=== PATIENT | male | born 1965 | race Hispanic/Latino ===

== ENCOUNTER 2016-10-29 00:17 | Emergency (ER) | payer SELFPAY ==
[2016-10-29] MEDS ORDERED: NORCO 5/325 PO ONE (06:22)
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
--- NOTE | 2016-10-29 06:47 | XRay Report ---
FINAL REPORT EXAM: XR SHOULDER 2+V LT HISTORY: left shoulder pain COMPARISONS: None. FINDINGS: 2 views left shoulder Left glenohumeral joint appears intact. Acromioclavicular and coracoclavicular intervals are within normal limits. No displaced fracture. Incomplete evaluation of the adjacent left lung is unremarkable. IMPRESSION: Unremarkable left shoulder radiographs.
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
[2016-10-29 07:41] VITALS: BP 102/58
== END 2016-10-29 07:43 | disposition home or self-care (01) ==
LOC: ED 00:17
DX: M25.512 Pain in left shoulder (principal); R51 Headache; M54.2 Cervicalgia; F17.200 Nicotine dependence, unspecified, uncomplicated; V89.2XXA Person injured in unspecified motor-vehicle accident, traffic, initial encounter; Y93.9 Activity, unspecified; Y99.9 Unspecified external cause status; Y92.410 Unspecified street and highway as the place of occurrence of the external cause
CPT/HCPCS: 70450; 72125

== ENCOUNTER 2020-12-12 03:21 | Emergency (ER) | payer SELFPAY ==
[2020-12-12] MEDS ORDERED: ZIPRASIDONE MESYLATE 20 MG VIAL IM ONE (04:24)
--- NOTE | 2020-12-12 04:42 | Emergency Department Report ---
ED Psych HPI - General Chief Complaint: Psych Stated Complaint: DEMONS TALK TO HIM Time Seen by Provider: 12/12/20 04:35 Source: patient, EMS Mode of arrival: Ambulatory Limitations: Altered Mental Status - History of Present Illness Initial Comments: Patient is a 55-year-old male who presents emergency room with complaints of hearing voices. Patient states he is demons are talking to him. Patient states there constant. Patient states they're worsening. Patient states been going on for 2 weeks or 2 months or maybe even 3 months. Patient denies suicidal and homicidal ideation. Patient states that he is very emotional because he can't get the voices to stop talking to him. Patient states the voices are getting louder. Patient started to yell at him. Patient denies recent travel. Patient denies recent international travel. Patient denies exposure to the novel coronavirus. Patient denies sick contacts. Patient denies fever and chills. Patient denies cough. Patient denies diarrhea. Patient denies coming in contact with anybody with symptoms of the novel coronavirus. MD Complaint: altered mental status Associated Psychiatric Symptoms: racing thoughts History of same: Yes Quality: constant Improves With: none Worsens With: none Context: significant life stressor Associated Symptoms: denies: confusion, headache, nausea, vomiting, syncope, insomnia - Related Data Allergies Allergy/AdvReac Type Severity Reaction Status Date / Time No Known Allergies Allergy Verified 12/13/20 10:20 ED Review of Systems ROS: Stated complaint: DEMARCELIA TALK TO HIM Other details as noted in HPI Constitutional: denies: chills, fever Eyes: denies: eye pain, eye discharge, vision change ENT: denies: ear pain, throat pain Respiratory: denies: cough, shortness of breath, wheezing Cardiovascular: denies: chest pain, palpitations Endocrine: no symptoms reported Gastrointestinal: denies: abdominal pain, nausea, diarrhea Genitourinary: denies: urgency, dysuria Musculoskeletal: denies: back pain, joint swelling, arthralgia Skin: denies: rash, lesions Neurological: denies: headache, weakness, paresthesias Psychiatric: auditory hallucinations. denies: anxiety, depression, visual hallucinations, homicidal thoughts, suicidal thoughts Hematological/Lymphatic: denies: easy bleeding, easy bruising ED Past Medical Hx - Past Medical History Previous Medical History?: No - Surgical History Additional Surgical History: back - Family History Family history: no significant - Social History Smoking Status: Current Every Day Smoker Substance Use Type: Alcohol ED Physical Exam - General Limitations: No Limitations General appearance: alert, in no apparent distress - Head Head exam: Present: atraumatic, normocephalic - Eye Eye exam: Present: normal appearance - ENT ENT exam: Present: mucous membranes moist - Neck Neck exam: Present: normal inspection - Respiratory Respiratory exam: Present: normal lung sounds bilaterally. Absent: respiratory distress - Cardiovascular Cardiovascular Exam: Present: regular rate, normal rhythm. Absent: systolic murmur, diastolic murmur, rubs, gallop - GI/Abdominal GI/Abdominal exam: Present: soft, normal bowel sounds - Rectal Rectal exam: Present: deferred - Extremities Exam Extremities exam: Present: normal inspection - Back Exam Back exam: Present: normal inspection - Neurological Exam Neurological exam: Present: alert, oriented X3 - Expanded Psychiatric Exam Expanded Focused psych exam: Present: pressured speech, internal stimuli, psychomotor agitation, paranoid, restlessness, flight of ideas - Skin Skin exam: Present: warm, dry, intact, normal color. Absent: rash ED Course Vital Signs 12/12/20 12/12/20 12/12/20 03:21 05:17 09:22 Temperature 98.2 F 97.8 F Pulse Rate 102 H 99 H Respiratory 16 18 18 Rate Blood Pressure 121/77 95/61 [Left] O2 Sat by Pulse 98 98 97 Oximetry 12/12/20 12/13/20 20:53 10:20 Temperature 98.5 F Pulse Rate 90 Respiratory 18 18 Rate Blood Pressure 117/69 [Left] O2 Sat by Pulse 96 97 Oximetry - Reevaluation(s) Reevaluation #1: Initial evaluation done. Patient will given Geodon 40 mg for his acute psychosis. Patient is emotionally labile. Patient placed on a ER hold. Elzbieta ent will have labs done. 12/12/20 04:42 Reevaluation #2: Patient is medically cleared. Patient remained in the ER as an ER hold until the patient is cleared by our psychiatry team. Patient's final disposition will come from our psychiatry team. 12/12/20 05:33 ED Medical Decision Making - Lab Data Result diagrams: 12/12/20 04:28 12/12/20 04:28 - Medical Decision Making Patient is a 55-year-old male who presents emergency room with hallucinations and stating that demons are trying to take over him. Patient states he is hearing voices and people keep talking to him. Patient states he cannot get control of the voices. Patient has been going on for some time. Patient is unsure exactly how long and mentioned multiple timeframes. Patient had labs done which were essentially unremarkable. Patient is medically cleared. Patient will remain in the ER as an ER hold until the patient is cleared by our psychiatry team. Patient's will come from our psychiatry team. - Differential Diagnosis Hallucinations, acute psychosis, agitation, restlessness Critical care attestation.: If time is entered above; I have spent that time in minutes in the direct care of this critically ill patient, excluding procedure time. ED Disposition Clinical Impression: Acute psychosis, Auditory hallucinations, Restlessness Disposition: [address] [place] [address] Is pt being admited?: No Does the pt Need Aspirin: No Condition: Stable Referrals: ARTHUR GARCIA MD [Primary Care Provider] - 2-3 Days Time of Disposition: 05:33
[2020-12-12 04:52] LABS: Basophils # (Auto) 0.1 K/mm3 (0.0-0.1); Eosinophils # (Auto) 0.3 K/mm3 (0.0-0.4); Eosinophils % (Auto) 4.7 % (0.0-4.3); Hematocrit 42.5 % (35.5-45.6); Hemoglobin 13.8 gm/dl (11.8-15.2); Lymphocytes # (Auto) 1.6 K/mm3 (1.2-5.4); Lymphocytes % (Auto) 25.8 % (13.4-35.0); Mean Corpuscular HGB Conc 32 % (32-34); Mean Corpuscular Volume 81 fl (84-94); Monocytes # (Auto) 0.7 K/mm3 (0.0-0.8); Monocytes % (Auto) 11.8 % (0.0-7.3); Platelet Count 236 K/mm3 (140-440); Red Blood Count 5.25 M/mm3 (3.65-5.03); Red Cell Distribution Width 15.3 % (13.2-15.2)
[2020-12-12 05:15] LABS: BUN/Creatinine Ratio 24; Blood Urea Nitrogen 26 mg/dL (9-20); Calcium 9.1 mg/dL (8.4-10.2); Hemolysis Index 2
[2020-12-12 07:17] LABS: Benzodiazepines Screen,Urine Negative; Cocaine Screen,Urine Negative; Methadone Screen,Urine Negative; Opiate Screen,Urine Negative
[2020-12-12 07:22] LABS: Bilirubin,Urine NEG (Negative); Blood,Urine NEG (Negative); Color,Urine Yellow (Yellow); Mucus,Urine FEW /HPF; Urobilinogen,Urine < 2.0 mg/dL (<2.0)
[2020-12-12 07:39] LABS: Amphetamine Screen,Urine Positive; Cannabinoid Screen,Urine Positive
--- NOTE | 2020-12-12 09:36 | Consultation ---
History of Present Illness - Reason for Consult Consult date: 12/12/20 Reason for consult: psychosis - History of Present Psychiatric Illness Per ER Note: Patient is a 55-year-old male who presents emergency room with complaints of hearing voices. Patient states he is demons are talking to him. Patient states there constant. Patient states they're worsening. Patient states been going on for 2 weeks or 2 months or maybe even 3 months. Patient denies suicidal and homicidal ideation. Patient states that he is very emotional because he can't get the voices to stop talking to him. Patient states the voices are getting louder. Patient started to yell at him. Andrew Ryan is a 55y/o male patient who was seen today. The patient is acutely psychotic. He is slow to respond, and distracted. He is responding to internal stimuli. He is irritable, uncooperative. He says "I just want to be left alone." He then asks if I could come back later. The patient says "I'm hearing voices I can't talk right now. I need help." He then states "this is the way you want it. This is what you want?" The patient is positive for amphetamines and THC PAST PSYCHIATRIC HISTORY: Unable to obtain PAST MEDICAL HISTORY: None reported or document Family Psychiatric History: None reported or documented SOCIAL HISTORY Unable to obtain REVIEW OF SYSTEMS Unable to obtain MENTAL STATUS EXAMINATION General Appearance and Behavior: Age appropriate, good hygiene, wearing appropriate clothes. Cooperation: uncooperative, guarded Psychomotor Behavior: Psychomotor normal Mood: not good Affect and affective range: restricted Thought Process: illogical Thought Content: hallucinations Speech: Normal volume, Regular rate and rhythm, Suicidal Ideation: Homicidal Ideation: Hallucinations: Auditory Delusions: Yes Impulse Control: Limited Insight and Judgment: Poor Memory: Poor Attention: Distracted Orientation: alert and oriented Assessment and Plan (1) Acute Psychosis (2) Amphetamine Use Disorder Treatment Plan 1013 Risperidone 0.5mg po BID Vistaril 50mg po BID Trazodone 50mg po qhs Sitter: Per primary Medical: per primary Disposition: Recommend acute psychiatric inpatient treatment. Will follow. Thanks. Case staffed with Dr. Maldonado Medications and Allergies Allergies Allergy/AdvReac Type Severity Reaction Status Date / Time No Known Allergies Allergy Unverified 10/29/16 00:40 Home Medications Medication Instructions Recorded Confirmed Last Taken Type Cyclobenzaprine [Flexeril] 10 mg PO TID PRN #12 tablet 10/29/16 Unknown Rx Naproxen [Naprosyn TAB] 500 mg PO BID PRN #25 tablet 10/29/16 Unknown Rx Mental Status Exam - Vital signs Last Vital Signs Temp 97.8 F 12/12/20 09:22 Pulse 99 H 12/12/20 09:22 Resp 18 12/12/20 09:22 BP 95/61 12/12/20 09:22 Pulse Ox 97 12/12/20 09:22 Results Result Diagrams: 12/12/20 04:28 12/12/20 04:28 Abnormal lab results 12/12/20 12/12/20 12/12/20 Range/Units 04:28 04:28 04:28 RBC (3.65-5.03) M/mm3 MCV (84-94) fl MCH (28-32) pg RDW (13.2-15.2) % Churchill % (Auto) (0.0-7.3) % Eos % (Auto) (0.0-4.3) % BUN 26 H (9-20) mg/dL Glucose 106 H (75-100) mg/dL Salicylates < 0.3 L (2.8-20.0) mg/dL Acetaminophen 7.0 L (10.0-30.0) ug/mL 12/12/20 Range/Units 04:28 RBC 5.25 H (3.65-5.03) M/mm3 MCV 81 L (84-94) fl MCH 26 L (28-32) pg RDW 15.3 H (13.2-15.2) % [place] % (Auto) 11.8 H (0.0-7.3) % Eos % (Auto) 4.7 H (0.0-4.3) % BUN (9-20) mg/dL Glucose (75-100) mg/dL Salicylates (2.8-20.0) mg/dL Acetaminophen (10.0-30.0) ug/mL All other labs normal.
[2020-12-12] MEDS: risperiDONE 0.25 MG TAB PO SCH ×2 (10:06→22:32)
--- NOTE | 2020-12-12 16:23 | Event Note ---
Date: 12/12/20 S: Patient has no complaints. No overnight events per nursing. O: Patient, cooperative. A: Acute psychosis, amphetamine use disorder P: Continue 1013, currently awaiting psychiatric placement
[2020-12-12] MEDS ORDERED: LORazepam 2 MG/ML VIAL IM ONE (18:29)
[2020-12-12 20:54] VITALS: BP 117/69
[2020-12-12] MEDS ORDERED: traZODone 50 MG TAB PO SCH (22:00)
[2020-12-13] MEDS: risperiDONE 0.25 MG TAB PO SCH (10:00)
== END 2020-12-13 10:55 ==
LOC: EEVIPCON 03:21 → ED 03:21
DX: R44.0 Auditory hallucinations (principal); R45.1 Restlessness and agitation; R41.82 Altered mental status, unspecified; Z98.890 Other specified postprocedural states; F17.200 Nicotine dependence, unspecified, uncomplicated; Z20.822 Contact with and (suspected) exposure to COVID-19
CPT/HCPCS: 36415; 80048; 80307; 81001; 85025; 96372; 99284; J2060; J3486; Q0177; U0003; 80320; G0480

== ENCOUNTER 2021-01-18 16:12 | Emergency (ER) | payer SELFPAY ==
[2021-01-18] MEDS ORDERED: LORazepam 1 MG TAB PO ONE (16:36)
[2021-01-18] MEDS ORDERED: ZIPRASIDONE MESYLATE 20 MG VIAL IM STA (16:53)
[2021-01-18 17:59] LABS: Basophils # (Auto) 0.1 K/mm3 (0.0-0.1); Basophils % (Auto) 0.9 % (0.0-1.8); Eosinophils # (Auto) 0.4 K/mm3 (0.0-0.4); Eosinophils % (Auto) 5.7 % (0.0-4.3); Hematocrit 39.3 % (35.5-45.6); Hemoglobin 12.8 gm/dl (11.8-15.2); Lymphocytes # (Auto) 1.3 K/mm3 (1.2-5.4); Lymphocytes % (Auto) 20.5 % (13.4-35.0); Mean Corpuscular HGB Conc 33 % (32-34); Mean Corpuscular Volume 80 fl (84-94); Monocytes # (Auto) 0.6 K/mm3 (0.0-0.8); Platelet Count 234 K/mm3 (140-440); Red Blood Count 4.92 M/mm3 (3.65-5.03); Red Cell Distribution Width 15.1 % (13.2-15.2)
[2021-01-18 18:23] LABS: BUN/Creatinine Ratio 22; Blood Urea Nitrogen 20 mg/dL (9-20); Calcium 8.7 mg/dL (8.4-10.2); Hemolysis Index 5
--- NOTE | 2021-01-18 18:31 | Emergency Department Report ---
ED Psych HPI - General Chief Complaint: Psych Stated Complaint: HEARING VOICES Time Seen by Provider: 01/18/21 16:31 Source: EMS Mode of arrival: Stretcher - History of Present Illness Initial Comments: Chief complaint: "I am a mental case. I am hearing voices. I need a strong medication." HPI: This is a 55-year-old male with history of methamphetamine abuse who presents with auditory hallucinations. He hears voices. Voices are telling him that he is going to be killed. He denies thoughts of self-harm. He denies suicidal homicidal ideation. He denies a mental health diagnosis. According to electronic medical record, patient was seen at this hospital last month in November for auditory hallucinations. Patient was transferred to [facility] facility. He denies any physical complaint. Last used methamphetamine several days ago. MD Complaint: other (Auditory hallucinations) -: Gradual, days(s) (Several days) Associated Psychiatric Symptoms: racing thoughts, auditory hallucinations History of same: Yes Quality: constant Improves With: none Worsens With: none Context: recent drug abuse (Methamphetamine abuse) Associated Symptoms: denies other symptoms Treatments Prior to Arrival: none - Related Data Home Medications Medication Instructions Recorded Confirmed Last Taken No Known Home Medications [No 01/19/21 01/19/21 Unknown Reported Home Medications] Allergies Allergy/AdvReac Type Severity Reaction Status Date / Time No Known Allergies Allergy Verified 12/13/20 10:20 ED Review of Systems ROS: Stated complaint: HEARING VOICES Other details as noted in HPI Comment: All other systems reviewed and negative Constitutional: denies: chills, fever, malaise Respiratory: denies: cough, orthopnea, shortness of breath Cardiovascular: denies: chest pain Gastrointestinal: denies: abdominal pain, nausea Psychiatric: anxiety, auditory hallucinations. denies: homicidal thoughts, suicidal thoughts ED Past Medical Hx - Past Medical History Previous Medical History?: No - Surgical History Past Surgical History?: No Additional Surgical History: back - Social History Smoking Status: Current Every Day Smoker Substance Use Type: Alcohol, Methamphetamines - Medications Home Medications: Home Medications Medication Instructions Recorded Confirmed Last Taken Type No Known Home Medications [No 01/19/21 01/19/21 Unknown History Reported Home Medications] ED Physical Exam - General Limitations: Altered Mental Status General appearance: alert, in no apparent distress - Head Head exam: Present: atraumatic, normocephalic - Eye Eye exam: Present: normal appearance - ENT ENT exam: Present: mucous membranes moist - Neck Neck exam: Present: normal inspection, full ROM - Respiratory Respiratory exam: Present: normal lung sounds bilaterally. Absent: respiratory distress, wheezes, rales, rhonchi - Cardiovascular Cardiovascular Exam: Present: regular rate, normal rhythm, normal heart sounds. Absent: systolic murmur, diastolic murmur, rubs, gallop - GI/Abdominal GI/Abdominal exam: Present: soft, normal bowel sounds. Absent: distended, tenderness, guarding, rebound - Rectal Rectal exam: Present: deferred - Extremities Exam Extremities exam: Present: normal inspection - Back Exam Back exam: Present: normal inspection - Neurological Exam Neurological exam: Present: alert, oriented X3 - Psychiatric Psychiatric exam: Present: agitated, other (responding to internal stimuli) - Skin Skin exam: Present: warm, dry, intact, normal color. Absent: rash ED Course Vital Signs 01/18/21 01/19/21 01/19/21 22:38 00:51 08:38 Temperature 98.0 F Pulse Rate 80 Respiratory 18 18 Rate Blood Pressure 96/59 [Left] O2 Sat by Pulse 99 99 99 Oximetry 01/19/21 01/19/21 01/20/21 09:13 19:37 08:39 Temperature 98.1 F 98.6 F 98.9 F Pulse Rate 85 74 91 H Respiratory 18 16 16 Rate Blood Pressure 114/78 123/74 110/69 [Left] O2 Sat by Pulse 96 98 97 Oximetry ED Medical Decision Making - Lab Data Result diagrams: 01/18/21 17:37 01/18/21 17:37 - Medical Decision Making Clinical impression: Drug-induced psychosis versus schizophrenia 1013 form completed ED hold order in place, CBC chemistry serum toxicology unremarkable. All within normal limits. Patient is medically clear for psychiatric care. According to electronic medical record, patient was transferred to [facility] psychiatric facility. Critical care attestation.: If time is entered above; I have spent that time in minutes in the direct care of this critically ill patient, excluding procedure time. ED Disposition Clinical Impression: Acute psychosis, Methamphetamine abuse Disposition: [address] [place] [address] Is pt being admited?: No Does the pt Need Aspirin: No Condition: Stable Referrals: PRIMARY CARE, [Primary Care Provider] - 3-5 Days
[2021-01-18] MEDS: traZODone 50 MG TAB PO SCH (22:34)
[2021-01-18] MEDS: hydrOXYzine PAMOATE 25 MG CAP PO SCH (22:34)
[2021-01-18] MEDS: risperiDONE 0.25 MG TAB PO SCH (22:34)
[2021-01-19] MEDS ORDERED: ALPRAZolam 0.5 MG TAB PO ONE (07:03)
[2021-01-19 07:46] LABS: Bilirubin,Urine NEG (Negative); Blood,Urine NEG (Negative); Color,Urine Yellow (Yellow); Mucus,Urine FEW /HPF; Protein,Urine <15 mg/dL mg/dL (Negative); Urobilinogen,Urine < 2.0 mg/dL (<2.0); WBC,Urine < 1.0 /HPF (0.0-6.0)
[2021-01-19 07:57] LABS: Amphetamine Screen,Urine PRESUMPTIVE POSITIVE; Benzodiazepines Screen,Urine PRESUMPTIVE NEGATIVE; Cannabinoid Screen,Urine PRESUMPTIVE POSITIVE; Cocaine Screen,Urine PRESUMPTIVE NEGATIVE; Methadone Screen,Urine PRESUMPTIVE NEGATIVE; Opiate Screen,Urine PRESUMPTIVE NEGATIVE
[2021-01-19] MEDS: hydrOXYzine PAMOATE 25 MG CAP PO SCH ×2 (09:46→21:53)
[2021-01-19] MEDS: risperiDONE 0.25 MG TAB PO SCH ×2 (09:47→21:53)
--- NOTE | 2021-01-19 10:32 | Consultation ---
History of Present Illness - Reason for Consult Consult date: 01/19/21 Reason for consult: mental health evaluation - History of Present Psychiatric Illness ED Note: This is a 55-year-old male with history of methamphetamine abuse who presents with auditory hallucinations. He hears voices. Voices are telling him that he is going to be killed. He denies thoughts of self-harm. He denies suicidal homicidal ideation. He denies a mental health diagnosis. According to electronic medical record, patient was seen at this hospital last month in November for auditory hallucinations. Patient was transferred to [facility] psychiatric facility. He denies any physical complaint. Andrew Ryan is a 55 year old male with history of Amphetamine type substance use disorder. In my interview with the patient, he is paranoid, he presents with racing and disorganized thoughts. The patient endorses auditory and visual hallucinations " voices saying I killed my mother and that my brother committed suicide." The The patient is hyperverbal and intrusive. He denies any current suicidal/homicidal ideation. PAST PSYCHIATRIC HISTORY Diagnoses: Unknown Suicide attempts or Self-harm behavior: Yes Prior psychiatric hospitalizations: Yes Substance Abuse history: Meth Previous psychiatric medications tried: Vistaril Outpatient treatment: none reported PAST MEDICAL HISTORY: unknown Family Psychiatric History: None reported or documented SOCIAL HISTORY Marital Status: single Living Arrangements: Lives with brother and mother Employment Status:unemployed Access to guns/weapons: none reported Education: 12th History of Abuse: none Legal History: none reported REVIEW OF SYSTEMS Constitutional: Negative for weight loss ENT: Negative for stridor Respiratory: Negative for cough or hemoptysis All other systems reviewed and are negative MENTAL STATUS EXAMINATION General Appearance and Behavior: Age appropriate, good hygiene, wearing appropriate clothes, good eye contact, cooperative polite with questioning. Cooperation: Participating Psychomotor Behavior: unremarkable and within normal limits Mood: disorganized Affect and affective range: congruent with mood Thought Process: goal directed Thought Content: Disorganized/ racing thoughts Speech: pressured/ hyperverbal Intellectual Functioning: Average Suicidal Ideation: Denies SI Homicidal Ideation: Denies HI Hallucinations: auditory/visual Delusions: paranoid Impulse Control: Unimpaired Insight and Judgment: Limited insight and poorjudgment, Memory: inattentive Orientation: Alert, oriented, Assessment and Plan (1) Amphetamine type substance use disorder Current Visit: Yes Status: Acute Treatment Plan 1013 Vistaril 25mg po TID Patient noncompliant with outpatient treatment, increase aggressive behavior recommended patient. Risks, benefits and alternatives of medications discussed with the patient, questions answered and consent obtained from patient. PSYCHOTHERAPY: Supportive psychotherapy provided MEDICAL: Per primary team DELIRIUM PRECAUTIONS: Please re-orient patient frequently, keep lights on during the day, and minimize benzodiazepines and opiates as these medications could worsen patient's confusion. 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 Safety discharge FOLLOW-UP: Will follow Thank you for the consult. Please contact with any questions and/or concerns. Case Staffed with Dr. Maldonado Medications and Allergies Allergies Allergy/AdvReac Type Severity Reaction Status Date / Time No Known Allergies Allergy Verified 12/13/20 10:20 Active Meds: Active Medications Hydroxyzine Pamoate (Hydroxyzine Pamoate 25 Mg Cap) 50 mg PO BID [facility] Last Admin: 01/19/21 09:46 Dose: 50 mg Documented by: Risperidone (Risperidone 0.25 Mg Tab) 0.5 mg PO BID [facility] Last Admin: 01/19/21 09:47 Dose: 0.5 mg Documented by: Trazodone HCl (Trazodone 50 Mg Tab) 50 mg PO QHS [facility] Last Admin: 01/18/21 22:34 Dose: 50 mg Documented by: Mental Status Exam - Vital signs Last Vital Signs Temp 98.1 F 01/19/21 09:13 Pulse 85 01/19/21 09:13 Resp 18 01/19/21 09:13 BP 114/78 01/19/21 09:13 Pulse Ox 96 01/19/21 09:13 Results Result Diagrams: 01/18/21 17:37 01/18/21 17:37 Abnormal lab results 01/18/21 01/18/21 01/18/21 Range/Units 17:37 17:37 17:37 MCV 80 L (84-94) fl MCH 26 L (28-32) pg [place] % (Auto) 9.0 H (0.0-7.3) % Eos % (Auto) 5.7 H (0.0-4.3) % Carbon Dioxide 20 L (22-30) mmol/L Glucose 122 H (75-100) mg/dL Salicylates < 0.3 L (2.8-20.0) mg/dL Acetaminophen (10.0-30.0) ug/mL 01/18/21 Range/Units 17:37 MCV (84-94) fl MCH (28-32) pg [place] % (Auto) (0.0-7.3) % Eos % (Auto) (0.0-4.3) % Carbon Dioxide (22-30) mmol/L Glucose (75-100) mg/dL Salicylates (2.8-20.0) mg/dL Acetaminophen 5.0 L (10.0-30.0) ug/mL All other labs normal.
--- NOTE | 2021-01-19 13:06 | Event Note ---
Date: 01/19/21 Awaiting psychiatric placement. No new events overnight. Patient has no complaints. Resting in room in no acute distress
[2021-01-19] MEDS ORDERED: ZIPRASIDONE MESYLATE 20 MG VIAL IM ONE ×2 (17:34→17:36)
[2021-01-19] MEDS: traZODone 50 MG TAB PO SCH (21:53)
[2021-01-20 08:40] VITALS: BP 110/69
== END 2021-01-20 08:50 ==
LOC: ED 16:12
DX: F23 Brief psychotic disorder (principal); F15.20 Other stimulant dependence, uncomplicated; Z20.822 Contact with and (suspected) exposure to COVID-19; F17.200 Nicotine dependence, unspecified, uncomplicated; F10.20 Alcohol dependence, uncomplicated
CPT/HCPCS: 36415; 80048; 80307; 81001; 85025; 96372; 99285; J3486; Q0177; U0003; 80320; J3490; G0480

== ENCOUNTER 2021-07-15 11:17 | Emergency (ER) | payer SELFPAY ==
[2021-07-15] MEDS ORDERED: IBUPROFEN 800 MG TAB PO ONE (13:13)
[2021-07-15] MEDS ORDERED: ALPRAZolam 0.25 MG TAB PO ONE (13:13)
[2021-07-15 13:23] LABS: Basophils # (Auto) 0.1 K/mm3 (0.0-0.1); Basophils % (Auto) 0.9 % (0.0-1.8); Eosinophils # (Auto) 0.2 K/mm3 (0.0-0.4); Eosinophils % (Auto) 2.5 % (0.0-4.3); Hematocrit 41.5 % (35.5-45.6); Hemoglobin 13.5 gm/dl (11.8-15.2); Lymphocytes # (Auto) 1.4 K/mm3 (1.2-5.4); Lymphocytes % (Auto) 21.9 % (13.4-35.0); Mean Corpuscular HGB Conc 33 % (32-34); Mean Corpuscular Volume 77 fl (84-94); Monocytes # (Auto) 0.4 K/mm3 (0.0-0.8); Monocytes % (Auto) 6.3 % (0.0-7.3); Platelet Count 233 K/mm3 (140-440); Red Cell Distribution Width 15.7 % (13.2-15.2)
[2021-07-15 14:12] LABS: BUN/Creatinine Ratio 16; Blood Urea Nitrogen 14 mg/dL (9-20); Calcium 8.8 mg/dL (8.4-10.2); Hemolysis Index 3
--- NOTE | 2021-07-15 14:28 | Emergency Department Report ---
HPI - General Chief Complaint: Psych Time Seen by Provider: 07/15/21 12:24 - HPI HPI: The patient decided to come to the emergency department because been hearing voices. The voices keep telling him that they are in a kill him. He denies current suicidal ideations. This is been happening for him for the last several years but has been worse over the last month. He supposed to be taking Paxil and he did not give me a good answer on whether he is taking it or not. He denies nausea vomiting fever chills headache focal weakness or any other associated symptoms. Nothing makes this better nor worse. ED Past Medical Hx - Past Medical History Additional medical history: Depression - Surgical History Additional Surgical History: back - Social History Smoking Status: Current Every Day Smoker Substance Use Type: Alcohol, Methamphetamines - Medications Home Medications: Home Medications Medication Instructions Recorded Confirmed Last Taken Type OLANzapine [ZyPREXA] 10 mg PO QHS 30 Days #30 tablet 07/17/21 Unknown Rx hydrOXYzine PAMOATE [Vistaril] 25 mg PO BID 30 Days #60 cap 07/17/21 Unknown Rx ED Review of Systems ROS: Stated complaint: HALLUCINATIONS Other details as noted in HPI Other: All other systems reviewed and negative. Physical Exam - Physical Exam Physical Exam: Physical Exam: Constitutional: AAOX3. No acute distress. No diaphoresis. HENT: Normocephalic. Pupils equal and reactive. No throat edema or erythema. Neck: No neck rigidity or tenderness. Cardiovascular: Heart sounds: No murmur. Normal rate and regular rhythm. Pulses: Intact distal pulses. Lungs: No wheezing or rales. Chest wall: No tenderness. Abdominal: No distension. No mass/pulsatile mass. No abdominal tenderness, guarding nor rebound. Musculoskeletal: Normal range of motion. No edema, No calf TTP. Skin: Warm and dry. Neurological: Alert and oriented to person, place, and time. Psychiatric: Mood and affect normal. Normal cognition and memory. Normal judgement. The patient is alert active and oriented x3 and making good eye contact. The mood is euethymic with congruent affect. The patient does not seem under the influence of any psychoactive substances. The thought pattern is relevant and coherent. The patient denies suicidal ideations. ED Course - Reevaluation(s) Reevaluation #1: The patient remained calm throughout his stay in the emergency department. His laboratories showed a normal CBC and chemistries. At this time he is medically cleared for psychiatric evaluation. Reevaluation #2: 07/17/21 14:32 Patient observed a couple of days he returned completely back to normal he is currently denying any suicidal ideations or hallucinations. He was seen by psychiatry who thought the patient is currently safe for discharge home and so we will discharge him home now. ED Medical Decision Making - Lab Data Result diagrams: 07/15/21 12:55 07/15/21 12:55 Critical care attestation.: If time is entered above; I have spent that time in minutes in the direct care of this critically ill patient, excluding procedure time. ED Disposition Clinical Impression: Methamphetamine abuse Disposition: HOME / SELF CARE / HOMELESS Is pt being admited?: No Does the pt Need Aspirin: No Condition: Stable Instructions: Amphetamines Use Disorder Additional Instructions: Professional and Agency Contacts To help Resolve Crises (12/09) ID Crisis Line: Suicide Prevention Line: Crisis Text Line: Text START to 044790 Emergency: 911 Outpatient COMMUNITY Behavioral Health Resources: [place]: [facility] [address], [place] [address] [facility] [address] [place] [address] Monday thru Monday - 8am - 5pm Call to schedule an assessment for mental health and substance abuse programs [facility] Address: [address] [place] [address] Monday thru Monday- 7am-2pm [facility] Address: [address] [place] [address] Monday thru Monday: 8:30AM-5PM Prescriptions: OLANzapine [ZyPREXA] 10 mg PO QHS 30 Days #30 tablet hydrOXYzine PAMOATE [Vistaril] 25 mg PO BID 30 Days #60 cap Referrals: PRIMARY CARE, [Primary Care Provider] - 3-5 Days Time of Disposition: 14:35 Print Language: BOLIVIAN
[2021-07-15] MEDS ORDERED: LORazepam 2 MG/ML VIAL IM ONE (18:36)
--- NOTE | 2021-07-16 10:23 | Consultation ---
History of Present Illness - Reason for Consult Consult date: 07/16/21 Reason for consult: Hallucinations - History of Present Psychiatric Illness ED Note: The patient decided to come to the emergency department because been hearing voices. The voices keep telling him that they are in a kill him. He denies current suicidal ideations. This is been happening for him for the last several years but has been worse over the last month. He supposed to be taking Paxil and he did not give me a good answer on whether he is taking it or not. He denies nausea vomiting fever chills headache focal weakness or any other associated symptoms. Nothing makes this better nor worse. The Patient is a 55 year old male with psych history of Methamphetamine abuse who presents to the ED with hallucinations. In my encounter with the patient, he is calm and cooperative. He reports having auditory hallucinations x 2 years, states he was on Zyprexa. The patient states voices are saying " kill, kill ." He denies any current suicidal/homicidal ideation. PAST PSYCHIATRIC HISTORY: Diagnoses:Unknown Suicide attempts or Self-harm behavior:Yes Prior psychiatric hospitalizations: Yes Substance Abuse history: Meth Previous psychiatric medications tried:Zyprexa, Vistaril Outpatient treatment:Unknown PAST MEDICAL HISTORY: None reported or document Family Psychiatric History: None reported or documented SOCIAL HISTORY Marital Status: single Living Arrangements: Lives with mother Employment Status: Unemployed Access to guns/weapons: Denies Education:12th grade History of Abuse: Denies Legal History: Denies REVIEW OF SYSTEMS Constitutional: Negative for weight loss ENT: Negative for stridor Respiratory: Negative for cough or hemoptysis All other systems reviewed and are negative MENTAL STATUS EXAMINATION General Appearance and Behavior: Age appropriate, wearing appropriate clothes, cooperative, polite with questioning, good eye contact, calm, polite Cooperation: cooperative Psychomotor Behavior: Psychomotor normal Mood: calm Affect and affective range: Congruent with stated mood Thought Process: Goal directed Thought Content:Hallucinations Speech: Normal volume, Regular rate and rhythm Suicidal Ideation: Denies Homicidal Ideation: Denies Hallucination: Auditory Delusions: None elicited Impulse Control: limited Insight and Judgment: Limited Memory: intact Attention: attentive Orientation: Alert and oriented Diagnoses: Psychosis Treatment Plan 1013 Continue home meds Zyprexa 10mg po BID PSYCHOTHERAPY: Supportive psychotherapy provided MEDICAL: Per primary team DELIRIUM PRECAUTIONS: Please re-orient patient frequently, keep lights on during the day, and minimize benzodiazepines and opiates as these medications could worsen patient's confusion. 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 Will follow. Thank you for the consult. Case staffed with Dr. Maldonado Medications and Allergies Medications and Allergies Allergies Allergy/AdvReac Type Severity Reaction Status Date / Time No Known Allergies Allergy Verified 12/13/20 10:20 Home Medications Medication Instructions Recorded Confirmed Last Taken Type No Known Home Medications [No 01/19/21 01/19/21 Unknown History Reported Home Medications] Mental Status Exam - Vital signs Last Vital Signs Temp 97.8 F 07/16/21 00:20 Pulse 70 07/16/21 00:20 Resp 16 07/16/21 00:20 BP 96/60 07/16/21 00:20 Pulse Ox 96 07/16/21 00:20 Results Result Diagrams: 07/15/21 12:55 07/15/21 12:55 Abnormal lab results 07/15/21 07/15/21 07/15/21 Range/Units 12:55 12:55 12:55 RBC 5.40 H (3.65-5.03) M/mm3 MCV 77 L (84-94) fl MCH 25 L (28-32) pg RDW 15.7 H (13.2-15.2) % Glucose 103 H (75-100) mg/dL Salicylates < 0.3 L (2.8-20.0) mg/dL Acetaminophen (10.0-30.0) ug/mL 07/15/21 Range/Units 12:55 RBC (3.65-5.03) M/mm3 MCV (84-94) fl MCH (28-32) pg RDW (13.2-15.2) % Glucose (75-100) mg/dL Salicylates (2.8-20.0) mg/dL Acetaminophen 5.0 L (10.0-30.0) ug/mL All other labs normal.
[2021-07-16] MEDS ORDERED: ALUM-MAG HYDROXIDE-SIMETHICONE 200-200-20MG/5ML ORAL LIQD 30 ML PO ONE (11:41)
--- NOTE | 2021-07-16 11:43 | Event Note ---
Date: 07/16/21 The patient had an unremarkable overnight stay in the psychiatric emergency department. Currently he still reports hearing voices that are telling him to kill kill kill. He reports slight epigastric burning-like discomfort that feels like prior reflux that he has had. The patient's mental status shows normal mood with congruent affect. He does not seem into the influence of any psychoactive substances. His thought pattern is relevant and coherent. Will give Maalox for his reflux.
[2021-07-16 13:38] LABS: Bilirubin,Urine NEG (Negative); Blood,Urine NEG (Negative); Color,Urine Yellow (Yellow); Mucus,Urine FEW /HPF; Protein,Urine <15 mg/dL mg/dL (Negative); Urobilinogen,Urine < 2.0 mg/dL (<2.0); WBC,Urine < 1.0 /HPF (0.0-6.0)
[2021-07-16 13:47] LABS: Benzodiazepines Screen,Urine Negative; Cocaine Screen,Urine Negative; Methadone Screen,Urine Negative; Opiate Screen,Urine Negative
[2021-07-16 14:10] LABS: Amphetamine Screen,Urine Positive; Cannabinoid Screen,Urine Positive
[2021-07-16] MEDS ORDERED: LORazepam 1 MG TAB PO ONE (19:51)
--- NOTE | 2021-07-17 10:00 | Progress Note ---
Subjective - Reason for Consult Consult date: 07/17/21 Reason for consult: Mental health evaluation - Chief Complaint Chief complaint: The patient was seen this morning. He reports having heart burn. the patient states sleep and appetite as ok. He denies any current suicidal/homicidal ideation but continues to have auditory hallucinations. REVIEW OF SYSTEMS Constitutional: Negative for weight loss ENT: Negative for stridor Respiratory: Negative for cough or hemoptysis All other systems reviewed and are negative MENTAL STATUS EXAMINATION General Appearance and Behavior: Age appropriate, wearing appropriate clothes, cooperative, polite with questioning, good eye contact, calm, polite Cooperation: cooperative Psychomotor Behavior: Psychomotor normal Mood: calm Affect and affective range: Congruent with stated mood Thought Process: Goal directed Thought Content:Hallucinations Speech: Normal volume, Regular rate and rhythm Suicidal Ideation: Denies Homicidal Ideation: Denies Hallucination: Auditory Delusions: None elicited Impulse Control: limited Insight and Judgment: Limited Memory: intact Attention: attentive Orientation: Alert and oriented Diagnoses: Methamphetamine abuse Treatment Plan DC 1013 Continue home meds Zyprexa 10mg po QHs Vistaril 25mg po BID PSYCHOTHERAPY: Supportive psychotherapy provided MEDICAL: Per primary team DELIRIUM PRECAUTIONS: Please re-orient patient frequently, keep lights on during the day, and minimize benzodiazepines and opiates as these medications could worsen patient's confusion. 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 Physician Allergist Immunologist will provide patient with psychiatric out patient resources. Will sign off. Thank you for the consult. Case staffed with Dr. Maldonado Medications and Allergies Mental Status Exam - Vital signs Last Vital Signs Temp 98.3 F 07/16/21 21:10 Pulse 90 07/16/21 21:10 Resp 16 07/16/21 21:10 BP 107/82 07/16/21 21:10 Pulse Ox 96 07/16/21 21:10
[2021-07-17] MEDS ORDERED: ALUM-MAG HYDROXIDE-SIMETHICONE 200-200-20MG/5ML ORAL LIQD 30 ML PO ONE (11:23)
--- NOTE | 2021-07-17 11:25 | Event Note ---
Date: 07/17/21 The patient has been resting comfortably with no issues overnight. He is complaining again of slight epigastric burning discomfort which usually gets better with Maalox. We will restart his Zyprexa. The patient is alert active and oriented x3 and making good eye contact. The mood is euethymic with congruent affect. The patient does not seem under the influence of any psychoactive substances. The thought pattern is relevant and coherent. The patient does endorse suicidal ideations. We will continue to follow.
[2021-07-17 12:55] VITALS: BP 109/80
== END 2021-07-17 15:37 | disposition home or self-care (01) ==
LOC: ED 11:17
DX: F15.10 Other stimulant abuse, uncomplicated (principal); F17.200 Nicotine dependence, unspecified, uncomplicated; F10.20 Alcohol dependence, uncomplicated; Z20.822 Contact with and (suspected) exposure to COVID-19
CPT/HCPCS: 36415; 80048; 85025; 96372; 99284; J2060; 80320; G0480